=== PATIENT | male | born 1945 | race Caucasian/White ===

== ENCOUNTER 2017-09-01 09:16 | Inpatient (IN) | payer MEDICARE ==
[2017-09-01] MEDS ORDERED: CEFAZOLIN/Water 2 GM/20 ML SYRINGE ONE (10:14)
[2017-09-01 10:26] LABS: #Basophils 0.1 thou/uL (0.0-0.2); #Eosinphils 0.1 thou/uL (0.0-0.7); #Lymphocytes 1.4 thou/uL (1.20-3.40); #Monocytes 0.3 thou/uL (0.11-0.59); #Neutrophils 1.7 thou/uL (1.40-6.50); %Basophils 1.6 % (0.0-1.0); %Eosinophils 1.9 % (0.0-10.0); %Lymphocytes 39.9 % (21.0-51.0); %Monocytes 7.3 % (0.0-10.0); Hematocrit 39.5 % (42.0-52.0); Mean Platelet Volume 6.4 fL (7.4-10.4); Red Blood Cell (RBC) Count 3.98 mill/uL (4.70-6.10); White Blood Cell (WBC) Count 3.4 thou/uL (4.8-10.8)
[2017-09-01 10:44] LABS: Anion Gap 11 mmol/L (10-20); BUN (Urea Nitrogen) 20 mg/dL (8.4-25.7); Calc. Creatinine Clearance 98 mL/min (70-130); Calcium 9.9 mg/dL (7.8-10.44); Carbon Dioxide 30 mmol/L (23-31); Chloride 102 mmol/L (98-107); Estimated GFR-MDRD Greater than 90
[2017-09-01] MEDS ORDERED: Fentanyl 250 MCG/5 ML VIAL ONE (17:54)
[2017-09-01] MEDS ORDERED: Propofol 200 MG/20 ML VIAL ONE (18:24)
[2017-09-01] MEDS ORDERED: Ondansetron HCl/PF 4 MG/2 ML Vial ONE (18:24)
[2017-09-01] MEDS ORDERED: Neomycin-Polymyxin 1 ML AMP ONE (18:44)
[2017-09-01] MEDS ORDERED: Ondansetron HCl/PF 4 MG/2 ML Vial IVP PRN ×2 (19:33→19:52)
[2017-09-01] MEDS ORDERED: Promethazine HCl 25 MG/ML VIAL IM PRN (19:33)
[2017-09-01] MEDS ORDERED: Promethazine HCl 25 MG/ML VIAL SLOW IVP PRN (19:33)
[2017-09-01] MEDS ORDERED: Bisacodyl 10 MG SUPP PR PRN (19:52)
[2017-09-01] MEDS ORDERED: Milk Of Magnesia 30 ML UDCUP PO PRN (19:52)
[2017-09-01] MEDS ORDERED: Cepastat Lozenges 1 LOZ PO PRN (19:52)
[2017-09-01] MEDS ORDERED: Acetaminophen 325 MG TAB PO PRN (19:52)
[2017-09-01] MEDS ORDERED: Ondansetron ODT 4 MG TAB PO PRN (19:52)
[2017-09-01] MEDS ORDERED: Fleet Enema 133 ML BOT PR PRN (19:52)
[2017-09-01] MEDS: Aspirin 325 MG TAB PO SCH (22:00)
[2017-09-01] MEDS: Ferrous Gluconate 324 MG TAB PO SCH (22:01)
[2017-09-01] MEDS: Senokot S 8.6-50 MG TAB PO SCH (22:01)
[2017-09-01] MEDS: Fentanyl 100 MCG/2 ML VIAL SLOW IVP PRN (22:06)
[2017-09-01] MEDS: Vancomycin HCl 1.5 GM in Sodium Chloride 0.9% 250 ML 300 ML IVPB SCH (22:15)
[2017-09-01 22:23] VITALS: BMI 24.0
[2017-09-01] MEDS: Ketorolac Tromethamine 30 MG/ML VIAL IVP SCH (23:34)
--- NOTE | 2017-09-02 02:06 | OP ---
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 PROCEDURES PERFORMED: 1. Removal of retained infected and broken hardware of the left tibia. 2. Irrigation and debridement of infected nonunion of the left distal tibial shaft. SURGEON: Clemente Bergman MD ANESTHESIA: General. TECHNIQUE: Patient was taken to the operating room and placed in the supine position. Satisfactory general anesthesia was performed. The left lower extremity was sterilely prepped and draped in the usual fashion. After exsanguination, tourniquet at the mid thigh was raised to 250 mmHg. A longit udinal incision was made over the anteromedial aspect of the leg to the previous scar and the very i ndurated scar tissue was sharply removed. There was abundant new bone that had formed outside the p late. This was removed with an osteotome, broken screws, screw heads were encountered and were chito aubrie. There was extra bone in the anterior aspect of the distal tibia, which was also removed with o steotome and a rongeur. The 5 locking screws that were still intact in the proximal aspect of the s haft were removed and the distal medial tibial plate was removed. The additional screws were remove d using fluoroscopy to find them. There were three broken screws that were in the distal aspect of the tibia in the metaphyseal region that had good noninfected bone around it, never left in place. The nonunion was identified and there was soft tissue in the bone that indicated the nonunion. This was removed with a curet and rongeur. This is a deeper tissue that appeared grossly infected and w as sent for Gram stain and culture and sensitivity. The wound was then copiously irrigated first wi th hydrogen peroxide and then with antibiotic irrigation using the Pulsavac and the wound was then c overed with Betadine soaked 4 x 4s, the wound was left open and a large dressing was applied along w ith a sugar tong splint. The tourniquet was released. The patient was awakened and transferred to recovery room in stable condition. ESTIMATED BLOOD LOSS: 50 mL. COMPLICATIONS: None.
[2017-09-02 05:41] LABS: Hematocrit 35.8 % (42.0-52.0); Red Blood Cell (RBC) Count 3.57 mill/uL (4.70-6.10); White Blood Cell (WBC) Count 6.2 thou/uL (4.8-10.8)
[2017-09-02] MEDS: Ketorolac Tromethamine 30 MG/ML VIAL IVP SCH ×3 (06:12→18:20)
[2017-09-02] MEDS: Multivitamin W/ Minerals 1 TAB PO SCH (09:28)
[2017-09-02] MEDS: Ferrous Gluconate 324 MG TAB PO SCH ×2 (09:28→21:02)
[2017-09-02] MEDS: Vancomycin HCl 1.5 GM in Sodium Chloride 0.9% 250 ML 300 ML IVPB SCH ×2 (09:28→21:58)
[2017-09-02] MEDS: Senokot S 8.6-50 MG TAB PO SCH ×2 (09:28→21:02)
[2017-09-02] MEDS: Aspirin 325 MG TAB PO SCH ×2 (09:28→21:02)
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
--- NOTE | 2017-09-02 16:54 | SPC ---
ULTRASOUND FLUOROSCOPIC GUIDED LEFT UPPER EXTREMITY PICC LINE PLACEMENT 09/02/17 INDICATION: Left lower extremity infection, need for custodial IV access. TECHNIQUE: Informed consent was obtained. Preprocedure ultrasound demonstrates a left basilic vein. Sagittal li ne left basilic vein was marked. The site was prepped and draped in the usual sterile fashion. Under ultrasound guidance, a micropuncture access kit was utilized to gain access to the left basilic vei n. The guide wire was advanced to the level of the IVC. A 5 Tamazight catheter sheath was then placed. A single lumen PICC line trimmed to 45 cm was guided over the wire and through the sheath. The sheat h and wire were removed. Tip of the catheter was seen in the cavoatrial junction. Catheter flushed a nd aspirated appropriately. TOTAL FLUOROSCOPIC TIME: 1 minute. TOTAL EXPOSURE: 2046 mGy*cm2. IMPRESSION: Successful left upper extremity PICC line placement. POS: [facility]
--- NOTE | 2017-09-02 17:38 | PRG ---
DATE OF SERVICE: 09/02/2017 SUBJECTIVE: Mr. Mcmillan underwent removal of plate and screws and irrigation and debridement of the le ft tibia. The patient was noted at that time to have nonunion of the left tibial shaft. At the prasanna e of surgery, the wound was left open. Deep cultures were obtained. The patient has been afebrile. His vital signs have been stable. Microbiology of the cultures thus far has shown no wbc's, no organisms seen on Gram stain and the cu ltures are still pending. The patient will work with physical therapy to ambulate. He needs to be nonweightbearing on the lef t lower extremity. Dr. Lozada has been consulted and the patient has been sent to have a PICC line i nserted for IV antibiotics. Plan on taking the patient back to the OR sometime later this week for additional irrigation, debridement, and possible bone grafting.
[2017-09-02] MEDS: Fentanyl 100 MCG/2 ML VIAL SLOW IVP PRN (21:58)
[2017-09-03] MEDS: Ketorolac Tromethamine 30 MG/ML VIAL IVP SCH ×5 (00:12→23:50)
[2017-09-03] MEDS: Aspirin 325 MG TAB PO SCH ×3 (09:21→21:23)
[2017-09-03] MEDS: Multivitamin W/ Minerals 1 TAB PO SCH (09:22)
[2017-09-03] MEDS: Ferrous Gluconate 324 MG TAB PO SCH ×2 (09:22→20:45)
[2017-09-03] MEDS: Senokot S 8.6-50 MG TAB PO SCH ×2 (09:22→20:46)
[2017-09-03] MEDS: Vancomycin HCl 1.5 GM in Sodium Chloride 0.9% 250 ML 300 ML IVPB SCH ×2 (09:23→20:46)
--- NOTE | 2017-09-03 10:47 | PRG ---
DATE OF SERVICE: 09/03/2017 Mr. Mcmillan had his PICC line placed yesterday. Dr. Lozada has seen the patient and he currently is on IV vancomycin and Rocephin. The patient has good pain control. The patient has been afebrile. Vital signs have been stable. Cultures so far have not grown any bacteria. The patient will be taken back to the operating room tomorrow for additional irrigation and debridem ent of the left tibia and possible bone grafting. He will need to continue to be nonweightbearing. Hopefully, the cultures will grow out what bacteria he has to give Dr. Lozada a much better idea of what antibiotics he will prescribe for the patient.
[2017-09-03] MEDS ORDERED: Heparin 1,000 UNITS/ML VIAL ONE (17:07)
[2017-09-04] MEDS ORDERED: Fentanyl 100 MCG/2 ML VIAL ONE ×3 (06:34→09:26)
[2017-09-04] MEDS ORDERED: Lidocaine 1% PF 5 ML VIAL ONE (07:35)
[2017-09-04] MEDS ORDERED: PHENYLEPHRINE-NS 100 MCG/ML 10 ML SYRINGE ONE (07:35)
[2017-09-04] MEDS ORDERED: Ondansetron HCl/PF 4 MG/2 ML Vial ONE (07:35)
[2017-09-04] MEDS ORDERED: Propofol 200 MG/20 ML VIAL ONE (07:35)
[2017-09-04] MEDS ORDERED: Neomycin-Polymyxin 1 ML AMP ONE (07:41)
[2017-09-04] MEDS ORDERED: Promethazine HCl 25 MG/ML VIAL SLOW IVP PRN (08:41)
[2017-09-04] MEDS ORDERED: HYDROmorphone 2 MG/ML VIAL SLOW IVP PRN (08:41)
[2017-09-04] MEDS ORDERED: Ondansetron HCl/PF 4 MG/2 ML Vial IVP PRN ×2 (08:41→08:59)
[2017-09-04] MEDS ORDERED: Promethazine HCl 25 MG/ML VIAL IM PRN (08:41)
[2017-09-04] MEDS ORDERED: Milk Of Magnesia 30 ML UDCUP PO PRN (08:59)
[2017-09-04] MEDS ORDERED: Bisacodyl 10 MG SUPP PR PRN (08:59)
[2017-09-04] MEDS ORDERED: Ondansetron ODT 4 MG TAB PO PRN (08:59)
[2017-09-04] MEDS ORDERED: Cepastat Lozenges 1 LOZ PO PRN (08:59)
[2017-09-04] MEDS ORDERED: Fleet Enema 133 ML BOT PR PRN (08:59)
[2017-09-04] MEDS ORDERED: DISULFIRAM PO SCH (09:00)
[2017-09-04] MEDS ORDERED: Non-Formulary Item 1 EACH (Multivitamin [Daily Multiple Vitamin] 1 EACH) PO SCH (09:00)
[2017-09-04] MEDS ORDERED: PARoxetine 20 MG TAB PO SCH (09:00)
--- NOTE | 2017-09-04 09:17 | OP ---
DATE OF OPERATION: 09/04/2017 PREOPERATIVE DIAGNOSIS: The patient is status post irrigation and debridement of an infected nonuni on on the left distal tibial shaft. POSTOPERATIVE DIAGNOSIS: The patient is status post irrigation and debridement of an infected nonun ion on the left distal tibial shaft. PROCEDURE: Irrigation and debridement on the left tibia with bone grafting of the nonunion and camelia yed primary closure of the wound on the anteromedial aspect of the left leg. SURGEON: Clemente Bergman M.D. ANESTHESIA: General. TECHNIQUE: The patient has been receiving IV antibiotics as per Infectious Disease. He was taken t o the operating room, placed in a supine position. Satisfactory general anesthesia was performed. Left lower extremity was sterilely prepped and draped in the usual fashion. Tourniquet was raised o n the left mid thigh to 250 mmHg. The wound appeared to be much roller cleaner. There was still some soft tissue granulation tissue in the nonunion, which was debrided with a curette and rongeur. Small ar eas around that were used to be pin tracks were also debrided. The rest of the bone looked very goo d and had punctate bleeding. The tibia and wound was then copiously irrigated with antibiotic solut ion using the high-speed spout liner. The cancellous bone chips and Dynagraft, which is a bone putty, was combined together and the nonunion was bone grafted as well as the other defects in the tibia. The wound was then closed using #1 Prolene in an interrupted vertical mattress sutures. Sterile dr essing was applied, and the patient was placed in a sugar-tong splint. Prior to closure, the tourni quet was released, and the patient did have good vasculature in the remaining bone. Once the dressi ng was applied, the patient was awakened, extubated, and transferred to the recovery room in stable condition. ESTIMATED BLOOD LOSS: 10 mL. COMPLICATIONS: None. TOURNIQUET TIME: 35 minutes.
[2017-09-04] MEDS: Fentanyl 100 MCG/2 ML VIAL SLOW IVP PRN ×3 (10:00→19:46)
[2017-09-04] MEDS: HYDROcodone/Acetaminophen 10/325 mg Tablet PO PRN ×4 (11:01→23:51)
[2017-09-04] MEDS: Aspirin 325 MG TAB PO SCH ×2 (11:02→20:29)
[2017-09-04] MEDS: Amlodipine 10 MG TAB PO SCH (11:02)
[2017-09-04] MEDS: Lisinopril/Hydrochlorothiazide 20/25 mg Tablet PO SCH (11:03)
[2017-09-04] MEDS: Magnesium Oxide 400 MG TAB PO SCH (11:03)
[2017-09-04] MEDS: Multivitamin W/ Minerals 1 TAB PO SCH ×2 (11:03→11:27)
[2017-09-04] MEDS: Ferrous Gluconate 324 MG TAB PO SCH ×3 (11:03→20:29)
[2017-09-04] MEDS: Senokot S 8.6-50 MG TAB PO SCH ×3 (11:04→20:30)
[2017-09-04] MEDS: Vancomycin HCl 1.5 GM in Sodium Chloride 0.9% 250 ML 300 ML IVPB SCH ×2 (11:29→21:53)
[2017-09-04] MEDS: Sodium Chloride 0.9% 1,000 ML IV SCH ×2 (11:29→15:00)
[2017-09-04] MEDS: cefTRIAXone\\ROCEPHIN 2 GM, Admixture Fee 1 EACH in Sodium Chloride 0.9% 100 ML IVPB SCH (12:08)
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
[2017-09-04 13:39] LABS: Anion Gap 10 mmol/L (10-20); BUN (Urea Nitrogen) 14 mg/dL (8.4-25.7); Calc. Creatinine Clearance 105 mL/min (70-130); Calcium 8.7 mg/dL (7.8-10.44); Carbon Dioxide 30 mmol/L (23-31); Chloride 101 mmol/L (98-107); Estimated GFR-MDRD Greater than 90
[2017-09-04] MEDS: Calcium Carbonate 600 MG TAB PO SCH (20:29)
[2017-09-04] MEDS: Ascorbic Acid 500 mg Chewable Tablet PO SCH (20:29)
[2017-09-04] MEDS: Atorvastatin Calcium 20 MG TAB PO SCH (20:29)
[2017-09-04] MEDS ORDERED: Non-Formulary Item 1 EACH (Ascorbate Calcium [Vitamin C] 500 MG) PO SCH (21:00)
[2017-09-05] MEDS: HYDROcodone/Acetaminophen 10/325 mg Tablet PO PRN ×4 (04:22→19:26)
[2017-09-05 04:56] LABS: Hematocrit 35.4 % (42.0-52.0); White Blood Cell (WBC) Count 5.4 thou/uL (4.8-10.8)
[2017-09-05] MEDS: Lisinopril/Hydrochlorothiazide 20/25 mg Tablet PO SCH (08:43)
[2017-09-05] MEDS: Aspirin 325 MG TAB PO SCH ×2 (08:43→20:50)
[2017-09-05] MEDS: Senokot S 8.6-50 MG TAB PO SCH ×2 (08:47→20:51)
[2017-09-05] MEDS: Multivitamin W/ Minerals 1 TAB PO SCH (08:47)
[2017-09-05] MEDS: Amlodipine 10 MG TAB PO SCH (08:47)
[2017-09-05] MEDS: Ferrous Gluconate 324 MG TAB PO SCH ×2 (08:48→20:51)
[2017-09-05] MEDS: Magnesium Oxide 400 MG TAB PO SCH (08:48)
[2017-09-05] MEDS ORDERED: Multivit, Therapeutic 1 TAB PO SCH (09:00)
[2017-09-05] MEDS: Vancomycin HCl 1.5 GM in Sodium Chloride 0.9% 250 ML 300 ML IVPB SCH ×2 (09:45→20:50)
[2017-09-05] MEDS: cefTRIAXone\\ROCEPHIN 2 GM, Admixture Fee 1 EACH in Sodium Chloride 0.9% 100 ML IVPB SCH (11:12)
[2017-09-05] MEDS: Sodium Chloride 0.9% 1,000 ML IV SCH (18:12)
[2017-09-05] MEDS: Ascorbic Acid 500 mg Chewable Tablet PO SCH (20:51)
[2017-09-05] MEDS: Calcium Carbonate 600 MG TAB PO SCH (20:51)
[2017-09-05] MEDS: Atorvastatin Calcium 20 MG TAB PO SCH (20:51)
[2017-09-05] MEDS ORDERED: PARoxetine 20 MG TAB PO SCH (21:00)
[2017-09-06] MEDS: HYDROcodone/Acetaminophen 10/325 mg Tablet PO PRN ×4 (00:50→21:05)
[2017-09-06] MEDS: Sodium Chloride 0.9% 1,000 ML IV SCH (07:33)
[2017-09-06 08:14] LABS: Vancomycin, Trough 17.4 ug/mL
[2017-09-06] MEDS: Amlodipine 10 MG TAB PO SCH (08:42)
[2017-09-06] MEDS: Magnesium Oxide 400 MG TAB PO SCH (08:43)
[2017-09-06] MEDS: Lisinopril/Hydrochlorothiazide 20/25 mg Tablet PO SCH (08:43)
[2017-09-06] MEDS: Ferrous Gluconate 324 MG TAB PO SCH ×2 (08:43→21:05)
[2017-09-06] MEDS: Senokot S 8.6-50 MG TAB PO SCH ×2 (08:44→21:04)
[2017-09-06] MEDS: Aspirin 325 MG TAB PO SCH ×2 (08:44→21:04)
[2017-09-06] MEDS: Multivitamin W/ Minerals 1 TAB PO SCH (08:44)
--- NOTE | 2017-09-06 08:50 | PRG ---
DATE OF SERVICE: 09/06/2017 SUBJECTIVE: Mr. Mcmillan states pain is decreasing in his leg. He has been able to successfully get u p and out of bed and ambulate with a walker. He understands he needs to continue to be nonweightbea ring. The patient has been afebrile during the hospital course. Vital signs are stable. Dressing is intact, dry, and clean. His foot is neurovascularly intact. PLAN: The cultures have been negative. The patient has been followed by Dr. Lozada, who has him on IV Rocephin and vancomycin. The plan is for the patient to continue with IV antibiotics until 10/16. Once the patient is ready for discharge per Dr. Lozada, then he will be sent home. Follow up in my office in approximately 1 week.
[2017-09-06] MEDS: Vancomycin HCl 1.5 GM in Sodium Chloride 0.9% 250 ML 300 ML IVPB SCH ×2 (10:56→21:09)
[2017-09-06] MEDS: cefTRIAXone\\ROCEPHIN 2 GM, Admixture Fee 1 EACH in Sodium Chloride 0.9% 100 ML IVPB SCH (13:41)
[2017-09-06] MEDS ORDERED: PARoxetine 20 MG TAB PO SCH (21:00)
[2017-09-06] MEDS: Ascorbic Acid 500 mg Chewable Tablet PO SCH (21:04)
[2017-09-06] MEDS: Calcium Carbonate 600 MG TAB PO SCH (21:04)
[2017-09-06] MEDS: Atorvastatin Calcium 20 MG TAB PO SCH (21:05)
[2017-09-07] MEDS: Sodium Chloride 0.9% 1,000 ML IV SCH (06:28)
[2017-09-07] MEDS: HYDROcodone/Acetaminophen 10/325 mg Tablet PO PRN (06:31)
[2017-09-07 08:21] VITALS: TEMP 98.3
[2017-09-07] MEDS: Multivitamin W/ Minerals 1 TAB PO SCH (09:56)
[2017-09-07] MEDS: Aspirin 325 MG TAB PO SCH (09:56)
[2017-09-07] MEDS: Magnesium Oxide 400 MG TAB PO SCH (09:57)
[2017-09-07] MEDS: Amlodipine 10 MG TAB PO SCH (09:57)
[2017-09-07] MEDS: Ferrous Gluconate 324 MG TAB PO SCH (09:57)
[2017-09-07] MEDS: Lisinopril/Hydrochlorothiazide 20/25 mg Tablet PO SCH (09:58)
[2017-09-07] MEDS: Senokot S 8.6-50 MG TAB PO SCH (09:59)
[2017-09-07] MEDS: Vancomycin HCl 1.5 GM in Sodium Chloride 0.9% 250 ML 300 ML IVPB SCH (10:07)
[2017-09-07 12:15] VITALS: BP 129/87
[2017-09-07] MEDS: cefTRIAXone\\ROCEPHIN 2 GM, Admixture Fee 1 EACH in Sodium Chloride 0.9% 100 ML IVPB SCH (13:33)
--- NOTE | 2017-09-08 01:18 | DIS ---
DATE OF ADMISSION: 09/01/2017 DATE OF DISCHARGE: 09/07/2017 HISTORY OF PRESENT ILLNESS: Please see admission history and physical. HOSPITAL COURSE: The patient was worked up medically prior to admission and found to be stable for surgery, was taken to the operating room on the day of admission and underwent irrigation and debrid ement of the left leg with removal of plate and screws from the left tibia and deep culturing. Dr. Lozada was consulted and the patient was started after the cultures were obtained. He was started on IV vancomycin and Rocephin. The patient was taken back to the operating room on 09/04 where he und erwent additional irrigation and debridement of left tibia with bone grafting of the nonunion using allograft bone and delayed primary closure of the wound on the anteromedial aspect of the left leg. The cultures were all negative and it was felt by Dr. Lozada as well as myself that this was false n egative and preparations were made for the patient to get 6 weeks of IV antibiotics. A PICC line wa s inserted and arrangements were made for the patient to have IV antibiotics administered at home. His pain in his left leg decreased as each passing day. Physical therapy worked with him and he minor y quickly became independently ambulatory using a walker. Patient knows that he needs to be nonweig htbearing on the left lower extremity. The patient remained afebrile and vital signs remained stabl e. His postoperative hemoglobin was 11.7 on 09/02 and on 09/05, it was 11.4. His sed rate was 79. After it was made sure that all the cultures did not grow anything and arrangements were made for t he patient to get IV antibiotics at home, he was able to be discharged. 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 DISCHARGE MEDICATIONS: The patient will continue with the same medicines at home. I wrote a prescr iption for [place] 10 one every 6 hours as needed for pain, #60. He will also receive vancomycin 1.5 grams q.12 hours and Rocephin 2 grams IV daily. He will get these IV antibiotics until 10/16 after which he will get an additional 3 months of minocycline. PLAN: He will follow up in the office in 2 weeks for additional x-rays and reinspection of the woun d and probably remove the sutures.
--- NOTE | 2017-09-09 21:47 | EKG ---
Test Reason : PREOP Blood Pressure : / mmHG Vent. Rate : 061 BPM Atrial Rate : 061 BPM P-R Int : 160 ms QRS Dur : 108 ms QT Int : 432 ms P-R-T Axes : 056 061 074 degrees QTc Int : 434 ms Normal sinus rhythm Normal ECG When compared with ECG of 11-JUN-2016 10:05, No significant change was found Confirmed by GIANCARLO SANDHU ([id number]) on 09/09/2017 9:46:58 PM Referred By: LILLY Confirmed By:GIANCARLO SANDHU
== END 2017-09-07 19:20 | disposition home health service (06) | DRG 493 ==
LOC: SDC 09:16 → SURG A 20:08
PROVIDERS: ADMIT Orthopaedic Surgery; ATTEND Orthopaedic Surgery
PROC: 0QPH04Z Removal of Internal Fixation Device from Left Tibia, Open Approach (ICD-10-PCS; principal; 2017-09-01)
PROC: 0QBH0ZZ Excision of Left Tibia, Open Approach (ICD-10-PCS; 2017-09-01)
PROC: 02HV33Z Insertion of Infusion Device into Superior Vena Cava, Percutaneous Approach (ICD-10-PCS; 2017-09-02)
PROC: B548ZZA Ultrasonography of Superior Vena Cava, Guidance (ICD-10-PCS; 2017-09-02)
PROC: 0QUH0JZ Supplement Left Tibia with Synthetic Substitute, Open Approach (ICD-10-PCS; 2017-09-04)
DX: T84.623A Infection and inflammatory reaction due to internal fixation device of left tibia, initial encounter (principal); S82.302K Unspecified fracture of lower end of left tibia, subsequent encounter for closed fracture with nonunion; M86.8X6 Other osteomyelitis, lower leg; I10 Essential (primary) hypertension; T84.117A Breakdown (mechanical) of internal fixation device of bone of left lower leg, initial encounter; V19.9XXD Pedal cyclist (driver) (passenger) injured in unspecified traffic accident, subsequent encounter; E78.00 Pure hypercholesterolemia, unspecified; F32.9 Major depressive disorder, single episode, unspecified
CPT/HCPCS: 36415; 36569; 76001; 80048; 80202; 85025; 85027; 85652; 86140; 87070; 87205; 93005; 93010; C1713; C1751; C1768; G8978-GP-CJ; G8979-GP-CI; G8987-GO-CI; G8988-GO-CI; G8989-GO-CI; J0696; J1644; J1885; J2001; J2405; J2704; J3010; J3370; J7050

== ENCOUNTER 2017-11-03 10:42 | Day surgery (SDC) | payer MEDICARE ==
[2017-11-02 08:30] VITALS: BMI 23.7
[2017-11-03] MEDS ORDERED: CEFAZOLIN/Water 2 GM/20 ML SYRINGE ONE (10:58)
[2017-11-03 11:11] LABS: #Basophils 0.1 thou/uL (0.0-0.2); #Eosinphils 0.1 thou/uL (0.0-0.7); #Lymphocytes 1.5 thou/uL (1.20-3.40); #Monocytes 0.4 thou/uL (0.11-0.59); #Neutrophils 2.6 thou/uL (1.40-6.50); %Basophils 1.6 % (0.0-1.0); %Eosinophils 2.7 % (0.0-10.0); %Monocytes 8.3 % (0.0-10.0); %Neutrophils 54.5 % (42.0-75.0); Hemoglobin 14.2 g/dL (14.0-18.0); Mean Corpuscular HGB CONC 33.2 g/dL (32.0-36.0); Mean Corpuscular Hemoglobin 33.3 pg (27.0-31.0); Mean Platelet Volume 7.6 fL (7.4-10.4); Platelet Count 234 thou/uL (130-400); Red Blood Cell (RBC) Count 4.27 mill/uL (4.70-6.10); White Blood Cell (WBC) Count 4.7 thou/uL (4.8-10.8)
[2017-11-03] MEDS ORDERED: Neomycin-Polymyxin 1 ML AMP ONE (11:15)
[2017-11-03 11:31] LABS: Anion Gap 15 mmol/L (10-20); BUN (Urea Nitrogen) 19 mg/dL (8.4-25.7); Calc. Creatinine Clearance 93 mL/min (70-130); Calcium 10.1 mg/dL (7.8-10.44); Carbon Dioxide 27 mmol/L (23-31); Chloride 102 mmol/L (98-107); Estimated GFR-MDRD Greater than 90; Glucose 92 mg/dL (80-115); Potassium 3.9 mmol/L (3.5-5.1); Sodium 140 mmol/L (136-145)
[2017-11-03] MEDS ORDERED: Fentanyl 100 MCG/2 ML VIAL ONE (11:35)
[2017-11-03] MEDS ORDERED: HYDROcodone/Acetaminophen 7.5/325 mg Tablet ONE (13:17)
--- NOTE | 2017-11-03 15:05 | OP ---
DATE OF OPERATION: 11/03/2017 PREOPERATIVE DIAGNOSIS: The patient is status post infected nonunion of the left distal tibia with o pen wound measuring 5 cm. POSTOPERATIVE DIAGNOSIS: The patient is status post infected nonunion of the left distal tibia with open wound measuring 5 cm. PROCEDURE PERFORMED: Irrigation and debridement of the open wound left leg and primary closure. SURGEON: Clemente Bergman M.D. ANESTHESIA: General. TECHNIQUE: The patient had been receiving IV antibiotics per the Infectious Disease doctor for infec sofia nonunion of the left tibia. The patient had open wound that developed and was unable to close be cause of bone graft that was inserted last surgical procedure had migrated to the wound and would not allow the skin to close. The left lower extremity was sterilely prepped and draped and the wound ed ges were excised. The bone graft was removed from the open wound periphery and under the skin region , taken down to the deeper area of the tibia where a culture and sensitivity was obtained and the wou nd was copiously irrigated with antibiotic solution using the high speed narcotics detective. Once the subcuta neous bone graft was removed using a curet and a rongeur, the wound was able to be closed using 2-0 V icryl for the subcutaneous layer and the skin was closed with 3-0 Rapide. A sterile dressing was chelo lied. The patient was awakened, extubated, and transferred to recovery room in stable condition. ESTIMATED BLOOD LOSS: 30 mL COMPLICATIONS: None. TOURNIQUET TIME: None.
[2017-11-03] MEDS ORDERED: Propofol 200 MG/20 ML VIAL ONE (15:36)
[2017-11-03] MEDS ORDERED: Lidocaine 1% PF 5 ML VIAL ONE (15:36)
[2017-11-03] MEDS ORDERED: Ondansetron HCl/PF 4 MG/2 ML Vial ONE (15:36)
== END 2017-11-03 13:50 | disposition home or self-care (01) ==
LOC: SDC 10:42 → EDSTATUS 14:31
PROVIDERS: ATTEND Orthopaedic Surgery
DX: S81.802A Unspecified open wound, left lower leg, initial encounter (principal); Z90.89 Acquired absence of other organs; Z98.890 Other specified postprocedural states
CPT/HCPCS: 36415; 80048; 85025; 87070; 87205; J2001; J2405; J2704; J3010

== ENCOUNTER 2018-02-02 06:04 | Day surgery (SDC) | payer MEDICARE ==
[2018-02-01 15:55] VITALS: BMI 23.7
[2018-02-02] MEDS ORDERED: Fentanyl 100 MCG/2 ML VIAL ONE ×4 (06:20→09:41)
[2018-02-02] MEDS ORDERED: Neomycin-Polymyxin 1 ML AMP ONE (06:45)
[2018-02-02 07:07] LABS: Anion Gap 11 mmol/L (10-20); BUN (Urea Nitrogen) 23 mg/dL (8.4-25.7); Calc. Creatinine Clearance 94 mL/min (70-130); Calcium 9.9 mg/dL (7.8-10.44); Carbon Dioxide 29 mmol/L (23-31); Chloride 106 mmol/L (98-107); Estimated GFR-MDRD Greater than 90; Glucose 98 mg/dL (80-115); Potassium 4.9 mmol/L (3.5-5.1); Sodium 141 mmol/L (136-145)
[2018-02-02] MEDS ORDERED: HYDROcodone/Acetaminophen 5/325 mg Tablet ONE (11:41)
--- NOTE | 2018-02-02 11:47 | OP ---
DATE OF PROCEDURE: 02/02/2018 PREOPERATIVE DIAGNOSIS: Infected nonunion left distal tibial shaft. POSTOPERATIVE DIAGNOSIS: Infected nonunion left distal tibial shaft. PROCEDURE: Irrigation and debridement of left distal tibia with deep cultures. SURGEON: Clemente Bergman M.D. ANESTHESIA: General. TECHNIQUE: The patient was taken to the operating room and placed in supine position. Satisfactory general anesthesia was performed. The left lower extremity was sterilely prepped and draped in usual fashion. Incision was made on the anteromedial aspect of the left distal leg just above the ankle j oint. The scar was excised sharply. There was bone graft debris in the soft tissue which was sharpl y debrided. There was movement at the distal tibia indicating nonunion. There was scar tissue and b one debris in the mid portion of the nonunion which was collected and sent for aerobic and anaerobic culture and sensitivity, fungal cultures, cell count and differential and Gram stain. After the cult ures were obtained the patient was then given 2 grams of Ancef. The scar tissue and extra bony debri s that was from previous bone graft was debrided with curet and rongeur, leaving a gap in the tibia t hat was in some areas 1 inch in distance. The scar tissue was debrided all the way to the lateral as pect of the tibia. The entire wound was then cleansed with hydrogen peroxide and after that the woun d was copiously irrigated with antibiotic solution using the high speed analytical research program manager. When done, there was only exposed barrow bone without any scar tissue or bone graft in the area. The wound was then c losed using #1 Nylon in interrupted vertical mattress sutures to be brought back later after the woun d was declared clean. A sterile dressing with a sugar tong splint was then applied. The tourniquet was released and the patient was awakened, extubated, and transferred to recovery room in stable cond ition. ESTIMATED BLOOD LOSS: None. COMPLICATIONS: None. TOURNIQUET TIME: 44 minutes.
[2018-02-02] MEDS ORDERED: Dexamethasone 20 MG/5 ML VIAL ONE (13:52)
[2018-02-02] MEDS ORDERED: Lidocaine 1% PF 5 ML VIAL ONE (13:52)
[2018-02-02] MEDS ORDERED: PROPOFOL 200 MG/20 ML VIAL ONE (13:52)
[2018-02-02] MEDS ORDERED: Ondansetron HCl/PF 4 MG/2 ML Vial ONE (13:52)
[2018-02-05 10:23] LABS: Fungus Stain Final report (.)
[2018-02-05 10:23] LABS: Fungus Stain Final report (.)
[2018-02-05 10:23] LABS: Fungus Stain Final report (.)
== END 2018-02-02 13:17 | disposition home or self-care (01) ==
LOC: SDC 06:04
PROVIDERS: ATTEND Orthopaedic Surgery
PROC: 0QBH0ZZ Excision of Left Tibia, Open Approach (ICD-10-PCS; principal; 2018-02-02)
DX: S82.302K Unspecified fracture of lower end of left tibia, subsequent encounter for closed fracture with nonunion (principal); M86.8X6 Other osteomyelitis, lower leg; B95.2 Enterococcus as the cause of diseases classified elsewhere; F32.9 Major depressive disorder, single episode, unspecified; I10 Essential (primary) hypertension; G47.30 Sleep apnea, unspecified; Z88.2 Allergy status to sulfonamides; Z79.899 Other long term (current) drug therapy
CPT/HCPCS: 80048; 87070; 87077; 87102; 87116; 87205; 87206; 96374; J1100; J2001; J2405; J2704; J3010

== ENCOUNTER 2019-06-08 09:56 | Outpatient (CLI) | payer MEDICARE ==
--- NOTE | 2019-06-08 10:37 | RAD ---
PA AND LATERAL CHEST: HISTORY: Cough. COMPARISON: 06/11/2016 FINDINGS: The heart size is normal. The lungs are well expanded without focal areas of consolidation, pneumoth oraces, or pleural effusions. There is stable elevation of the right hemidiaphragm. There is interp osition of the colon between the right hemidiaphragm and the liver, which was also seen on the previo us exam. No acute osseous abnormalities are seen. IMPRESSION: No radiographic evidence of acute cardiopulmonary process. POS: [facility]
== END 2019-06-08 09:57 | disposition home or self-care (01) ==
LOC: SCSRAD 09:56
PROVIDERS: ATTEND Physician Assistant
DX: R05 Cough (principal)
CPT/HCPCS: 71046

== ENCOUNTER 2020-08-08 14:57 | Outpatient (CLI) | payer MEDICARE, OTHER ==
--- NOTE | 2020-08-08 15:55 | RAD ---
CERVICAL SPINE 5 VIEWS: HISTORY: Neck pain. COMPARISON: No comparison. FINDINGS: The cervical vertebrae maintain height. There are moderate degenerative changes in the mid and lower cervical spine. There is an anterolisthesis at the C4-5 level measured at approximately 3 mm. Loss of disk space at the C5-6 and C6-7 levels with degenerative change including anterior osteophytes an d posterior spondylosis. Mild facet hypertrophy. IMPRESSION: Moderate degenerative changes of the cervical spine as described. Anterolisthesis at C4-5. POS: [facility]
== END 2020-08-08 14:58 | disposition home or self-care (01) ==
LOC: SCSRAD 14:57
PROVIDERS: ATTEND Physician Assistant
DX: M54.2 Cervicalgia (principal); M47.812 Spondylosis without myelopathy or radiculopathy, cervical region; M43.12 Spondylolisthesis, cervical region
CPT/HCPCS: 72040

== ENCOUNTER 2022-07-07 08:10 | Outpatient (CLI) | payer MEDICARE, OTHER ==
[2022-07-07 10:02] LABS: #Eosinphils 0.2 thou/uL (0.0-0.7); #Lymphocytes 1.5 thou/uL (1.20-3.40); #Monocytes 0.3 thou/uL (0.11-0.59); #Neutrophils 1.3 thou/uL (1.40-6.50); %Basophils 0.5 % (0.0-1.0); %Eosinophils 4.7 % (0.0-10.0); %Lymphocytes 47.2 % (21.0-51.0); %Monocytes 7.8 % (0.0-10.0); %Neutrophils 39.7 % (42.0-75.0); Hemoglobin 14.1 g/dL (14.0-18.0); Mean Corpuscular HGB CONC 32.4 g/dL (32.0-36.0); Mean Platelet Volume 9.1 fL (7.4-10.4); Platelet Count 175 thou/uL (130-400); RBC Distribution Width 13.3 % (11.5-14.5); Red Blood Cell (RBC) Count 4.14 mill/uL (4.70-6.10); White Blood Cell (WBC) Count 3.2 thou/uL (4.8-10.8)
[2022-07-07 10:40] LABS: ALT (SGPT) 17 U/L (8-55); AST (SGOT) 21 U/L (5-34); Albumin 4.2 g/dL (3.4-4.8); Alkaline Phosphatase 72 U/L (40-110); Anion Gap 15 mmol/L (10-20); BUN (Urea Nitrogen) 19 mg/dL (8.4-25.7); Bilirubin, Total 0.5 mg/dL (0.2-1.2); Calc. Creatinine Clearance 0 mL/min (70-130); Calcium 9.5 mg/dL (7.8-10.44); Carbon Dioxide 27 mmol/L (23-31); Chloride 105 mmol/L (98-107); Cholesterol 153 mg/dl (< 200 Desired); Estimated GFR 90; Globulin 2.7 g/dL (2.4-3.5); Glucose 93 mg/dL (83-110); HDL Cholesterol 78 mg/dL (>60 Neg Risk); LDL Cholesterol, Calculated 69 mg/dL; Potassium 4.5 mmol/L (3.5-5.1); Protein, Total 6.9 g/dL (5.8-8.1); Sodium 142 mmol/L (136-145); Triglycerides 30 mg/dL (Less than 150)
[2022-07-07 10:45] LABS: PSA-Asymptomatic (SCREENING) 0.4 ng/mL (0-4.0)
== END 2022-07-07 08:11 | disposition home or self-care (01) ==
LOC: SCSRAD 08:10
PROVIDERS: ATTEND Family Medicine
DX: M25.531 Pain in right wrist (principal); M25.532 Pain in left wrist; Z00.00 Encounter for general adult medical examination without abnormal findings; D53.9 Nutritional anemia, unspecified; R26.81 Unsteadiness on feet; F10.21 Alcohol dependence, in remission; M18.12 Unilateral primary osteoarthritis of first carpometacarpal joint, left hand
CPT/HCPCS: 36415; 80053; 80061; 82607; 82746; 85025; G0103